=== PATIENT | male | born 1980 | race Two or more races ===

== ENCOUNTER 2017-05-29 20:32 | Emergency (ER) | payer OTHER ==
[~2017-05-29] VITALS: Ht 180.3 cm; Wt 75.3 kg
[2017-05-29 20:32] VITALS: BP 134/76
[2017-05-29 21:57] LABS: APPEARANCE,URINE CLEAR (CLEAR); BILIRUBIN,URINE NEGATIVE (NEGATIVE); BLOOD, URINE 1+ Ery/uL (NEGATIVE); COLOR,URINE YELLOW (YELLOW); KETONES,URINE NEGATIVE (NEGATIVE); LEUKOCYTE ESTERASE ,URINE NEGATIVE (NEGATIVE); NITRITE, URINE NEGATIVE (NEGATIVE); PROTEIN,URINE NEGATIVE (NEGATIVE); UGLUCOSE NEGATIVE (NEGATIVE); UROBILINOGEN,URINE 0.2 EU/dL (0.2)
[2017-05-29 22:02] LABS: BACTERIA,URINE Rare /HPF (None Seen); RBC,URINE 0-2 /HPF (0-2); SQUAMOUS EPITHELIAL CELL,UR Rare /HPF (None Seen); WBC,URINE 0-2 /HPF (0-3)
[2017-05-29] MEDS ORDERED: AZITHROMYCIN 250 MG TABLET ONE (22:05)
[2017-05-29] MEDS ORDERED: CEFTRIAXONE 500 MG VIAL ONE (22:05)
[2017-05-29] MEDS ORDERED: LIDOCAINE /MPF 1% VIAL 5 ML VIAL ONE (22:06)
[2017-05-29] MEDS: AZITHROMYCIN 250 MG TABLET PO ONE (22:12)
[2017-05-29] MEDS: CEFTRIAXONE 500 MG VIAL IM ONE (22:25)
== END 2017-05-29 22:37 | disposition home or self-care (01) ==
LOC: ER 20:34
DX: R36.9 Urethral discharge, unspecified (principal)
CPT/HCPCS: 81001; 87491; 87591; 96372; 99284; A4606; J0696; J3490; Z7610; 81000-TC